=== PATIENT | female | born 1970 | race Two or more races ===

== ENCOUNTER 2018-06-29 21:21 | Emergency (ER) | payer OTHER ==
[~2018-06-29] VITALS: Ht 162.6 cm; Wt 65.8 kg
--- NOTE | 2018-06-29 21:30 | ED.ADGEN ---
Past History Past Medical History: High Cholesterol, Hypothyroid Past Surgical History: Adult General Chief Complaint Chief Complaint -Complaints of severe right upper quadrant pain that radiates to back on right- Interview via telephone [phone]# HPI HPI Patient is a 47 year old female who presents with above hx and complaints of severe right upper quadrant abd. pain that radiates to Rt. shoulder blade. . Pain is reportedly been severe since 11 AM today. Pt. has been having nausea and vomiting with the pain. Patient denies previous history of gallbladder issues. Patient's had previous pregnancies x2 and delivery x2. No recent travel. No history of intake of bad food. No history of trauma. No longer has periods. Has had some intolerance of high fat meals and GERD like complaints. No hx of renal stones, IBS , colitis with her or family members. Pt. recent dx of thyroid issues and elevated cholesterol Pt. denies any trauma, recent travel or specific ill contacts. Has had normal stool yesterday. Review of Systems Review of Systems Constitutional: Denies fever or chills [] Eyes: Denies change in visual acuity, redness, or eye pain [] HENT: Denies nasal congestion or sore throat [] Respiratory: Denies cough or shortness of breath [] Cardiovascular: No additional information not addressed in HPI [] GI: Complaints of Rt. upper quadrant abdominal pain, nausea, vomiting,. Denies bloody stools or diarrhea [] : Denies dysuria or hematuria [] Musculoskeletal: Denies back pain or joint pain [] Integument: Denies rash or skin lesions [] Neurologic: Denies headache, focal weakness or sensory changes [] Endocrine: Denies polyuria or polydipsia [] All other systems were reviewed and found to be within normal limits, except as documented in this note. Family History Family History Noncontributory Current Medications Current Medications Current Medications Medications (Trade) Dose Ordered Sig/Mahad Start Time Stop Time Status Last Admin Dose Admin Ceftriaxone Sodium 1 gm/ Sodium Chloride 50 ml @ 100 mls/hr 1X ONCE 06/30/18 01:30 06/30/18 02:04 DC 06/30/18 01:52 100 MLS/HR Ceftriaxone Sodium (Rocephin) 1 gm STK-MED ONCE 06/30/18 01:48 06/30/18 01:49 DC Famotidine (Pepcid Vial) 20 mg 1X ONCE 06/29/18 21:45 06/29/18 21:52 DC 06/29/18 21:53 20 MG Info (Do NOT chart on this entry -- for MONITORING) 1 each PRN DAILY PRN 06/29/18 23:00 06/30/18 03:17 DC Iohexol (Omnipaque 240 Mg/ml) 50 ml 1X ONCE 06/29/18 23:00 06/29/18 23:01 DC 06/29/18 23:59 50 ML Iohexol (Omnipaque 300 Mg/ml) 75 ml 1X ONCE 06/29/18 23:00 06/29/18 23:01 DC 06/29/18 23:59 75 ML Lactated Ringer's 1,000 ml @ 1,000 mls/hr Q1H 06/29/18 22:00 06/29/18 22:59 DC 06/29/18 21:53 1,000 MLS/HR Metronidazole 100 ml @ 100 mls/hr 1X ONCE 06/30/18 01:30 06/30/18 02:29 DC 06/30/18 01:53 100 MLS/HR Morphine Sulfate (Morphine 10mg Syringe) 10 mg 1X ONCE 06/29/18 21:45 06/29/18 21:52 DC 06/29/18 21:54 10 MG Ondansetron HCl (Zofran) 8 mg 1X ONCE 06/30/18 00:15 06/30/18 01:02 DC 06/30/18 00:15 8 MG Sodium Chloride 50 ml @ As Directed STK-MED ONCE 06/30/18 01:48 06/30/18 01:49 DC Allergies Allergies Allergies Coded Allergies Type Severity Reaction Last Updated Verified No Known Drug Allergies 06/29/18 No Physical Exam Physical Exam Constitutional: In acute distress, non-toxic appearance. [] HENT: Normocephalic, atraumatic, bilateral external ears normal, oropharynx moist, no oral exudates, nose normal. [] Eyes: PERRLA, EOMI, conjunctiva normal, no discharge. [] Neck: Normal range of motion, no tenderness, supple, no stridor. [] Cardiovascular:Heart rate regular rhythm, no murmur [] Lungs & Thorax: Bilateral breath sounds clear to auscultation [] Abdomen: Bowel sounds normal, soft, right upper quadrant tenderness, no masses, no pulsatile masses. [] Old scar. Rebound to right upper quadrant. Pt. declines rectal or vaginal exam at this time. No hx of tarry or dark stool. Currently vomiting. Skin: Warm, dry, no erythema, no rash. [] Back: No tenderness, right CVA tenderness. [] Extremities: No tenderness, no cyanosis, no clubbing, ROM intact, no edema. [] No psoas sign. Neurologic: Alert and oriented X 3, normal motor function, normal sensory function, no focal deficits noted. [] Psychologic: Affect anxious, judgement normal, mood normal. [] Current Patient Data Vital Signs Vital Signs Date Time Temp Pulse Resp B/P (MAP) Pulse Ox O2 Delivery O2 Flow Rate FiO2 06/30/18 02:00 68 14 100/60 (73) 98 Room Air 06/29/18 21:21 98.6 Lab Results Laboratory Tests Test 06/29/18 21:42 06/29/18 21:53 White Blood Count 8.6 x10^3/uL (4.0-11.0) Red Blood Count 5.00 x10^6/uL (3.50-5.40) Hemoglobin 14.5 g/dL (12.0-15.5) Hematocrit 43.6 % (36.0-47.0) Mean Corpuscular Volume 87 fL (79-100) Mean Corpuscular Hemoglobin 29 pg (25-35) Mean Corpuscular Hemoglobin Concent 33 g/dL (31-37) Red Cell Distribution Width 13.6 % (11.5-14.5) Platelet Count 255 x10^3/uL (140-400) Neutrophils (%) (Auto) 63 % (31-73) Lymphocytes (%) (Auto) 27 % (24-48) Monocytes (%) (Auto) 8 % (0-9) Eosinophils (%) (Auto) 2 % (0-3) Basophils (%) (Auto) 0 % (0-3) Neutrophils # (Auto) 5.4 x10^3uL (1.8-7.7) Lymphocytes # (Auto) 2.3 x10^3/uL (1.0-4.8) Monocytes # (Auto) 0.7 x10^3/uL (0.0-1.1) Eosinophils # (Auto) 0.1 x10^3/uL (0.0-0.7) Basophils # (Auto) 0.0 x10^3/uL (0.0-0.2) Prothrombin Time 9.9 SEC (9.4-11.4) Prothrombin Time INR 1.0 (0.9-1.1) PTT 26 SEC (23-33) Urine Collection Type Unknown Urine Color Straw Urine Clarity Clear Urine pH 5.0 Urine Specific Rufe 1.020 Urine Protein Neg (NEG-TRACE) Urine Glucose (UA) Neg mg/dL (NEG) Urine Ketones (Stick) Neg mg/dL (NEG) Urine Blood Mod (NEG) Urine Nitrite Neg (NEG) Urine Bilirubin Neg (NEG) Urine Urobilinogen Dipstick 0.2 mg/dL (0.2 mg/dL) Urine Leukocyte Esterase Trace (NEG) Urine RBC Occ /HPF (0-2) Urine WBC 1-4 /HPF (0-4) Urine Squamous Epithelial Cells Occ /LPF Urine Bacteria 0 /HPF (0-FEW) Urine Mucus Slight /LPF Sodium Level 142 mmol/L (136-145) Potassium Level 3.4 mmol/L (3.5-5.1) L Chloride Level 104 mmol/L (98-107) Carbon Dioxide Level 30 mmol/L (21-32) Anion Gap 8 (6-14) Blood Urea Nitrogen 7 mg/dL (7-20) Creatinine 1.0 mg/dL (0.6-1.0) Estimated GFR (Cockcroft-Gault) 60.0 Glucose Level 101 mg/dL (70-99) H Calcium Level 9.2 mg/dL (8.5-10.1) Total Bilirubin 0.3 mg/dL (0.2-1.0) Direct Bilirubin 0.1 mg/dL (0.0-0.2) Aspartate Amino Transferase (AST) 26 U/L (15-37) Alanine Aminotransferase (ALT) 35 U/L (14-59) Alkaline Phosphatase 112 U/L (46-116) Creatine Kinase 155 U/L (26-192) Troponin I Quantitative < 0.017 ng/mL (0-0.055) Total Protein 7.9 g/dL (6.4-8.2) Albumin 3.9 g/dL (3.4-5.0) Amylase Level 76 U/L (25-115) Lipase 171 U/L (73-393) Urine Opiates Screen Neg (NEG) Urine Methadone Screen Neg (NEG) Urine Barbiturates Pos (NEG) Urine Phencyclidine Screen Neg (NEG) Urine Amphetamine/Methamphetamine Neg (NEG) Urine Benzodiazepines Screen Neg (NEG) Urine Cocaine Screen Neg (NEG) Urine Cannabinoids Screen Neg (NEG) Urine Ethyl Alcohol Neg (NEG) POC Urine HCG, Qualitative hcg negative (Negative) EKG EKG My interpretation EKG shows a sinus rhythm at 84 bpm. There is some nonspecific anterior lateral changes. But no findings acute STEMI with contralateral changes.[] Radiology/Procedures Radiology/Procedures My interpretation acute abdomen film shows gastric distention, stool in the colon consistent with constipation. Does have a 3.4 cm sclerotic area and acetabulum. CT of abdomen shows distended gallbladder with her cholecystic fluid. 2.8 cm sclerotic lesion right iliac bone. Radiology recommends follow-up ultrasound evaluation of gallbladder and a non-emergent bone scan. See formal report. [] Course & Med Decision Making Course & Med Decision Making Pertinent Labs and Imaging studies reviewed. (See chart for details) Discussed presentation, testing and tx. plan with Dr. Cardenas- will accept pt. in transfer to [facility] for Surgical consult. Dr. Dye notified of consult for pt. after admission to [facility] [] Final Impression Final Impression 1. Abdomen Pain[], Nausea and Vomiting 2. Cholecystitis 3. Sclerotic Lesion Rt. Iliac bone 4. Hx. Elevated Lipids 5. Hx. Hypo Thyroid Dragon Disclaimer Dragon Disclaimer This electronic medical record was generated, in whole or in part, using a voice recognition dictation system. FABBY PORTILLO MD June 29, 2018 21:30
[2018-06-29] MEDS: IV RINGERS SOLUTION,LACTATED 1,000 ML IV SCH (21:53)
[2018-06-29] MEDS: FAMOTIDINE 20 MG/2 ML VIAL IVP ONE (21:53)
[2018-06-29] MEDS: ONDANSETRON PF 4 MG/2 ML VIAL. IV ONE (21:53)
[2018-06-29] MEDS: MORPHINE SULFATE 10 MG/ML SYRINGE. SQ ONE (21:54)
[2018-06-29 22:09] LABS: BASO % 0 % (0-3); EOS # 0.1 x10^3/uL (0.0-0.7); EOS % 2 % (0-3); HEMATOCRIT 43.6 % (36.0-47.0); HEMOGLOBIN 14.5 g/dL (12.0-15.5); LYMPH # 2.3 x10^3/uL (1.0-4.8); LYMPH % 27 % (24-48); MEAN CORPUSCULAR HEMOGLOBIN 29 pg (25-35); MEAN CORPUSCULAR HGB CONC 33 g/dL (31-37); MEAN CORPUSCULAR VOLUME 87 fL (79-100); MONO # 0.7 x10^3/uL (0.0-1.1); MONO % 8 % (0-9); NEUT # 5.4 x10^3uL (1.8-7.7); NEUT % 63 % (31-73); PLATELET COUNT 255 x10^3/uL (140-400); RED CELL DISTRIBUTION WIDTH 13.6 % (11.5-14.5); WHITE BLOOD COUNT 8.6 x10^3/uL (4.0-11.0)
--- NOTE | 2018-06-29 22:14 | EKG ---
[address] [address] Test Date: 2018-06-29 Test Time: 22:11:29 Pat Name: MAY SAHA Department: Room: Gender: F [employer]: : 1970 Requested By: FABBY PORTILLO Order Number: [id number] Reading MD: Rolly King MD Measurements Intervals Adrian Rate: 84 P: 56 OH: 140 QRS: 6 QRSD: 82 T: 24 QT: 380 QTc: 452 Interpretive Statements SINUS RHYTHM Electronically Signed On 07-26-2018 9:26:55 CDT by Rolly King MD
[2018-06-29 22:15] LABS: BARBITURATES POS (NEG); BENZODIAZEPINES NEG (NEG); CANNABINOIDS NEG (NEG); COCAINE NEG (NEG); METHADONE NEG (NEG); OPIATES NEG (NEG); PHENCYCLIDINE NEG (NEG)
[2018-06-29 22:17] LABS: AMPHETAMINE/METHAMPHETAMINE NEG (NEG)
[2018-06-29 22:29] LABS: BACTERIA,URINE 0 /HPF (0-FEW); BILIRUBIN,URINE NEG (NEG); CLARITY,URINE CLEAR; COLOR,URINE STRAW; GLUCOSE,URINE NEG (NEG); NITRITE,URINE NEG (NEG); RBC,URINE OCC /HPF (0-2); SQUAMOUS EPITHELIAL CELL,UR OCC /LPF; UROBILINOGEN,URINE 0.2 mg/dL (0.2 mg/dL)
[2018-06-29 22:31] LABS: ALBUMIN 3.9 g/dL (3.4-5.0); CALCIUM 9.2 mg/dL (8.5-10.1); DIRECT BILIRUBIN 0.1 mg/dL (0.0-0.2); POTASSIUM 3.4 mmol/L (3.5-5.1); TOTAL BILIRUBIN 0.3 mg/dL (0.2-1.0); TOTAL PROTEIN 7.9 g/dL (6.4-8.2)
--- NOTE | 2018-06-29 22:33 | RAD ---
EXAM: Two view abdomen with one view chest HISTORY: Abdominal pain. COMPARISON: None. FINDINGS: A frontal view of the chest and supine/upright views of the abdomen are obtained. There are no confluent infiltrates. There is no pneumothorax or pleural effusion. The heart is not enlarged. The stomach and moderately distended There is no pneumoperitoneum. There are no distended small bowel loops or significant air-fluid levels. There is gas distally. Stool throughout the colon is consistent with constipation. A 3.4 x 2.1 cm sclerotic focus along the right superior acetabulum with is indeterminate but likely benign in the absence of known malignancy. IMPRESSION: 1. No confluent infiltrates. 2. Gastric distention. Correlate clinically. 3. Mild constipation. 4. 3.4 cm sclerotic focus in the right superior acetabulum. This could be a large bone island but is indeterminate. Correlate with older studies to confirm stability. Electronically signed by: Britt Wies MD (06/29/2018 10:30 PM) [facility]
[2018-06-29] MEDS ORDERED: CONTRAST GIVEN MC PRN (23:00)
[2018-06-29] MEDS: IOHEXOL 300 MG/ML 75 ML VIAL. IV ONE (23:59)
[2018-06-29] MEDS: IOHEXOL 240 MG/ML 50ML VIAL. PO ONE (23:59)
[2018-06-30] MEDS: ONDANSETRON PF 4 MG/2 ML VIAL. IV ONE (00:15)
--- NOTE | 2018-06-30 00:34 | RAD ---
Examination: CT of the abdomen pelvis with IV contrast and oral contrast HISTORY: History of right upper quadrant abdominal pain, nausea, vomiting COMPARISON: 03/04/2012 TECHNIQUE: Axial CT images of the abdomen pelvis were performed with IV contrast and oral. Coronal and sagittal reformatted performed Exposure: One or more of the following individualized dose reduction techniques were utilized for this examination: 1. Automated exposure control 2. Adjustment of the mA and/or kV according to patient size 3. Use of iterative reconstruction technique FINDINGS: Minimal bibasilar lung atelectasis. No evidence of free air identified in the abdomen. The visualized liver, spleen, adrenals grossly appears unremarkable. The gallbladder is moderately distended. There is questionable mild pericholecystic fluid. Mild prominent appearing common bile duct. The visualized pancreas, grossly appears unremarkable. The stomach is mildly distended. The small bowel is nondilated. Feces and gas noted in the colon. The appendix is normal. Urinary bladder is mildly distended. The bilateral kidneys enhance symmetrically. The caliber of the aorta grossly appears unremarkable. There is a sclerotic density identified in the right iliac bone measuring 2.8 cm. IMPRESSION: 1. Moderate distended gallbladder with questionable minimal pericholecystic fluid. Recommend ultrasound right upper quadrant to exclude cholecystitis. There is mild prominent appearing common bile duct. 2. A 2.8 cm sclerotic density identified in the right iliac bone, nonspecific could be a large bone island less likely metastasis is not completely excluded. Recommend follow-up nonemergent bone scan. Electronically signed by: Javi Hale MD (06/30/2018 12:31 AM) [facility]
[2018-06-30] MEDS ORDERED: IV NORMAL SALINE 50ML 50 ML ONE (01:48)
[2018-06-30] MEDS ORDERED: cefTRIAXone SODIUM 1 GM VIAL ONE (01:48)
[2018-06-30 02:00] VITALS: BP 100/60
== END 2018-06-30 02:44 | disposition short-term general hospital (02) ==
LOC: ER 21:21
DX: K81.9 Cholecystitis, unspecified (principal); R11.2 Nausea with vomiting, unspecified; K63.89 Other specified diseases of intestine; K59.00 Constipation, unspecified; E78.00 Pure hypercholesterolemia, unspecified; E03.9 Hypothyroidism, unspecified; Z98.890 Other specified postprocedural states
CPT/HCPCS: 36415; 74022; 74177; 80048; 80076; 80307; 81001; 81025; 82150; 82550; 83690; 84484; 85025; 85610; 85730; 87086; 93005; 96361; 96365; 96368; 96372; 96375; 96376; 99285; J0696; J2270; J2405; J3490; J7120; Q9966; Q9967

== ENCOUNTER 2020-11-10 11:27 | Emergency (ER) | payer OTHER ==
[~2020-11-10] VITALS: Ht 162.6 cm; Wt 65.8 kg
[2020-11-10 11:27] VITALS: BP 128/68
--- NOTE | 2020-11-10 11:54 | PHYS DOC ---
Past History Past Medical History: High Cholesterol, Hypothyroid (JIMENA FISHER APRN) Past Surgical History: (JIMENA FISHER APRN) Alcohol Use: None Drug Use: None (JIMENA FISHER APRN) General Adult EDM: Chief Complaint: BACK PAIN OR INJURY HPI: HPI: Patient is a 49-year-old female being seen in the ER for low back pain that started 30 minutes ago after she was bending over cleaning her oven and stood up , pain radiates into r. hip. Patient denies any loss of bowel or bladder, saddle anesthesias, numbness or tingling in her extremities. Patient is able to bear weight and ambulate but states it is painful. (JIMENA FISHER APRN) Review of Systems: Review of Systems: 14 body systems of the review of systems have been reviewed. See HPI for pertinent positive and negative responses, otherwise all other systems are negative, nonpertinent or noncontributory (JIMENA FISHER APRN) Current Medications: Current Meds: Current Medications Medications (Trade) Dose Ordered Sig/Mahad Start Time Stop Time Status Last Admin Dose Admin Ketorolac Tromethamine (Toradol Im) 60 mg 1X ONCE 11/10/20 12:00 11/10/20 12:01 UNV Orphenadrine Citrate (Norflex) 60 mg 1X ONCE 11/10/20 12:00 11/10/20 12:01 UNV (JIMENA FISHER APRN) Allergies: Allergies: Allergies Coded Allergies Type Severity Reaction Last Updated Verified No Known Drug Allergies 06/29/18 No (JIMENA FISHER APRN) Physical Exam: PE: Constitutional: Well developed, well nourished, no acute distress, non-toxic appearance. [] HENT: Normocephalic, atraumatic Eyes: PERRL, EOMI, conjunctiva normal, no discharge. [] Neck: Normal range of motion, no tenderness, supple, no stridor. [] Cardiovascular:Heart rate regular rhythm, no murmur [] Lungs & Thorax: Bilateral breath sounds clear to auscultation [] Abdomen: Bowel sounds normal, soft, no tenderness, no masses, no pulsatile masses. [] Skin: Warm, dry, no erythema, no rash. [] Back: Midline lumbar tenderness with palpation, no CVA tenderness. [] Extremities: No tenderness, no cyanosis, no clubbing, ROM intact-patient moving all 4 extremities equally, no edema. [] Neurologic: Alert and oriented X 3, normal motor function, normal sensory function, no focal deficits noted. [] Psychologic: Affect normal, judgement normal, mood normal. [] (JIMENA FISHER APRN) EKG: EKG: [] (JIMENA FISHER APRN) Radiology/Procedures: Radiology/Procedures: PROCEDURE: CT LUMBAR SPINE WO CONTRAST CT LUMBAR SPINE WO History:Reason: low back pain / Spl. Instructions: / History: Technique: Noncontrast CT was performed of the lumbar spine. Multiplanar reconstructions were performed. Exposure: One or more of the following individualized dose reduction techniques were utilized for this examination: 1. Automated exposure control 2. Adjustment of the mA and/or kV according to patient size 3. Use of iterative reconstruction technique. Comparison: None Findings: Normal vertebral body height and alignment. No fracture. Prior cholecystectomy. T12-L1: No canal or neuroforaminal narrowing. L1-L2: No canal or neuroforaminal narrowing. L2-L3: Small disc bulge. No canal or neuroforaminal narrowing. L3-L4: Right subarticular/foraminal disc protrusion. No canal narrowing. Moderate subarticular recess narrowing. Mild right neuroforaminal narrowing. No left neuroforaminal narrowing. L4-L5: Broad-based disc bulge. Mild facet arthropathy. No canal narrowing. Subarticular recess narrowing. Mild right neuroforaminal narrowing. L5-S1: Broad-based disc bulge. Mild facet arthropathy. No canal narrowing. Subarticular recess narrowing. Moderate right and mild left neuroforaminal narrowing. Impression: 1. Mild multilevel lumbar spondylosis. 2. L3-L4 right subarticular disc protrusion contributing to subarticular recess narrowing and potential abutment of the descending right L4 nerve root. Correlate for radiculopathy. 3. Additional L4-L5 and L5-S1 subarticular recess narrowing. 4. Neuroforaminal narrowing most prominent right L5-S1. Electronically signed by: Daniel Porras DO (11/10/2020 12:24 PM) [id number] DICTATED AND SIGNED BY: DANIEL PORRAS DO DATE: 11/10/20 1201 CC: FELI FAUSTIN MD; JIMENA FISHER APRN ~MTH0 0 [] (JIMENA FISHER APRN) Heart Score: C/O Chest Pain: No Risk Factors: Risk Factors: DM, Current or recent (<one month) smoker, HTN, HLP, family history of CAD, obesity. Risk Scores: Score 0 - 3: 2.5% MACE over next 6 weeks - Discharge Home Score 4 - 6: 20.3% MACE over next 6 weeks - Admit for Clinical Observation Score 7 - 10: 72.7% MACE over next 6 weeks - Early Invasive Strategies (JIMENA FISHER APRN) Course & Med Decision Making: Course & Med Decision Making Pertinent Labs and Imaging studies reviewed. (See chart for details) [] Patient is a 49-year-old female being seen in the ER for midline low back pain. Work-up in the ER consisted of CT of the lumbar spine. Patient treated with anti-inflammatory medications and a muscle relaxer. Patient reports improvement in her symptoms following administration medication. CT of lumbar spine shows L3-L4 disc protrusion with radiculopathy. Patient to be discharged home with muscle relaxers and advised to take anti-inflammatory medications. Patient advised to follow-up with primary care provider. I discussed with ronni scott all findings and diagnostic testing as well as the need to follow-up with PCP for further evaluation and treatment or return to the ER if any new or worsening symptoms. Strict return precautions were also discussed at length. Patient voiced understanding and agreement with the plan. Patient is hemodynamically stable at the time of disposition. (JIMENA FISHER APRN) Course & Med Decision Making I was the Attending physician on the above date of service of this patient. This patient was evaluated, examined, treated, and dispositioned from the emergency department by the mid-level practitioner. Although I was working at the time , no assistance was requested. Electronically signed, Misti Malloy DO (MISTI MALLOY DO) Yakelin Disclaimer: Yakelin Disclaimer: This electronic medical record was generated, in whole or in part, using a voice recognition dictation system. (JIMENA FISHER APRN) Departure Departure: Impression: Primary Impression: Back pain Qualified Codes: M54.5 - Low back pain Disposition: HOME / SELF CARE / HOMELESS Condition: GOOD Referrals: FELI FAUSTIN MD (PCP) Patient Instructions: Sciatica Additional Instructions: You are seen in the ER today for low back pain. CT scan was performed of your lumbar spine and it showed some degenerative changes and some disc protrusions with sciatica. Take ibuprofen and naproxen at home. You are being discharged home with a muscle relaxer. Take this as directed. Please be aware that this medication can cause sedation, do not take any need to be alert and do not take with alcohol. Follow-up with your primary care provider on Thursday regarding your ER visit. If you develop worsening of your back pain, loss of bowel or bladder, numbness in your lower extremities or groin, inability to bear weight or ambulate please return to the ER immediately. EMERGENCY DEPARTMENT GENERAL DISCHARGE INSTRUCTIONS Thank you for coming to [facility] (ED) today and trusting us with you care. We trust that you had a positivie experience in our Emergency Department. If you wish to speak to the department management, you may call the director at [phone]. YOUR FOLLOW UP INSTRUCTIONS ARE FOLLOWS: 1. Do you have a private Doctor? If you do not have a private doctor, please ask for a resource list of physicians or clinics that may be able to assist you with follow up care. 2. The Emergency Physician has interpreted your x-rays. The X-Ray specialist will also review them. If there is a change in the findings, you will be notified in 48 hours when at all possible. 3. A lab test or culture has been done, your results will be reviewed and you will be notified if you need a change in treatment. ADDITIONAL INSTRUCTIONS AND INFORMATION: 1. Your care today has been supervised by a physician who is specially trained in emergency care. Many problems require more than one evaluation for a complete diagnosis and treatment. We recommend that you schedule your follow up appointment as recommended to ensure complete treatment of you illness or injury. If you are unable to obtain follow up care and continue to have a problem, or if your condition worsens, we recommend that you return to the ED. 2. We are not able to safely determine your condition over the phone nor are we able to give sound medical advice over the phone. For these safety reasons, if you call for medical advice we will ask you to come to the ED for further evaluation. 3. If you have any questions regarding these discharge instructions please call the ED at [phone]. SAFETY INFORMATION: In the interest of safety, wellness, and injury prevention; we encourage you to wear your sealbelt, if you smoke; quite smoking, and we encourage family to use a protective helmet for bicycling and other sporting events that present an increased risk for head injury. IF YOUR SYMPTOMS WORSEN OR NEW SYMPTOMS DEVELOP, OR YOU HAVE CONCERNS ABOUT YOUR CONDITION; OR IF YOUR CONDITION WORSENS WHILE YOU ARE WAITING FOR YOUR FOLLOW UP AP POINTMENT; EITHER CONTACT YOUR PRIMARY CARE DOCTOR, THE PHYSICIAN WHOSE NAME AND NUMBER YOU WERE GIVEN, OR RETURN TO THE ED IMMEDIATELY. Scripts Cyclobenzaprine Hcl (CYCLOBENZAPRINE HCL) 5 Mg Tablet 1 TAB PO TID for muscle spasm for 7 Days, #21 TAB 0 Refills Prov: JIMENA FISHER APRN 11/10/20 JIMENA FISHER APRN Nov 10, 2020 11:54 MISTI MALLOY DO Nov 12, 2020 06:35
[2020-11-10] MEDS ORDERED: ORPHENADRINE CITRATE 60 MG/2 ML VIAL. IM ONE (12:00)
[2020-11-10] MEDS ORDERED: KETOROLAC 60 MG/2 ML VIAL. IM ONE (12:00)
--- NOTE | 2020-11-10 12:27 | RAD ---
CT LUMBAR SPINE WO History:Reason: low back pain / Spl. Instructions: / History: Technique: Noncontrast CT was performed of the lumbar spine. Multiplanar reconstructions were perform ed. Exposure: One or more of the following individualized dose reduction techniques were utilized for thi s examination: 1. Automated exposure control 2. Adjustment of the mA and/or kV according to patient size 3. Use of iterative reconstruction technique. Comparison: None Findings: Normal vertebral body height and alignment. No fracture. Prior cholecystectomy. T12-L1: No canal or neuroforaminal narrowing. L1-L2: No canal or neuroforaminal narrowing. L2-L3: Small disc bulge. No canal or neuroforaminal narrowing. L3-L4: Right subarticular/foraminal disc protrusion. No canal narrowing. Moderate subarticular reces s narrowing. Mild right neuroforaminal narrowing. No left neuroforaminal narrowing. L4-L5: Broad-based disc bulge. Mild facet arthropathy. No canal narrowing. Subarticular recess narro wing. Mild right neuroforaminal narrowing. L5-S1: Broad-based disc bulge. Mild facet arthropathy. No canal narrowing. Subarticular recess narro wing. Moderate right and mild left neuroforaminal narrowing. Impression: 1. Mild multilevel lumbar spondylosis. 2. L3-L4 right subarticular disc protrusion contributing to subarticular recess narrowing and potent ial abutment of the descending right L4 nerve root. Correlate for radiculopathy. 3. Additional L4-L5 and L5-S1 subarticular recess narrowing. 4. Neuroforaminal narrowing most prominent right L5-S1. Electronically signed by: Daniel Porras DO (11/10/2020 12:24 PM) [id number]
[2020-11-10] MEDS ORDERED: CYCL5TAB PO (12:41)
== END 2020-11-10 12:55 | disposition home or self-care (01) ==
LOC: ER 11:27
DX: M54.5 Low back pain (principal); E78.00 Pure hypercholesterolemia, unspecified; E03.9 Hypothyroidism, unspecified
CPT/HCPCS: 72131; 96372; 99284; J1885; J2360